=== PATIENT | female | born 1990 | race Caucasian/White ===

== ENCOUNTER 2020-01-04 09:49 | Emergency (ER) | payer SELFPAY ==
[2020-01-04 09:54] VITALS: BP 92/49; PULSE 73; RESP 18; TEMP 37.1; O2SAT 100
[2020-01-04 11:41] VITALS: BP 96/67; PULSE 89; RESP 17; TEMP 37.7; O2SAT 99
--- NOTE | 2020-01-04 11:42 | ED.ABDPAIN ---
HPI - Abdominal Pain General Chief Complaint: Unspecified Stated Complaint: sore throat/cough Time Seen by Provider: 01/04/20 09:50 Source: patient Mode of arrival: ambulatory Limitations: no limitations History of Present Illness HPI narrative: Patient is a 29-year-old female who presents with 1 week duration of upper respiratory infection with sore throat and productive cough of green phlegm denies fever chills nausea vomiting patient on arrival in the room in no distress not take anything for her symptoms notes mild aching pain to the throat made worse with swallowing Related Data Allergies Allergy/AdvReac Type Severity Reaction Status Date / Time No Known Allergies Allergy Verified 01/04/20 09:57 Review of Systems Review of Systems: Narrative: CONSTITUTIONAL: Denies fever, chills, or sweats. EYES: Denies redness, or discharge. ENT: Denies rhinorrhea, congestion, or otalgia. RESPIRATORY: Denies dyspnea. GASTROINTESTINAL: Denies abdominal pain, nausea, vomiting, or diarrhea. GENITOURINARY: Denies dysuria or hematuria. SKIN: Denies rash or itching. MUSCULOSKELETAL: Denies back pain, joint pain, or myalgia. NEUROLOGIC: Denies headache, or weakness. [facility] History Surgical History Hx of tubal ligation Social History Social History Smoking status: Never smoker Gender identity (if verbalized by the patient): Female Exam Narrative: Exam Narrative: GENERAL: Well-appearing, well-nourished, and in no acute distress. HEAD: Normocephalic, atraumatic. EYES: PERRLA and EOMI. ENT: Nares clear, no rhinorrhea or epistaxis. Mucous membranes moist. Oropharynx with erythema and without tonsillar hypertrophy exudate or other lesions. Bilateral TMs pearly ortiz nonbulging NECK: Supple. No adenopathy or masses. CHEST: Clear to auscultation. No respiratory distress. No wheezes rales or rhonchi HEART: Regular rate and rhythm. No murmur heard. EXTREMITIES: Normal range of motion. No edema. SKIN: Warm, dry, no rash. NEURO: No focal deficits. Alert and oriented x3. Cranial nerves II through XII grossly intact PSYCH: Normal mood and affect. Course Course Emergency Course: Patient in the room in no distress aware of case findings treatment plan and diagnosis Vital Signs Vital signs: Vital Signs Temperature 98.7 F 01/04/20 09:54 Pulse Rate 73 01/04/20 09:54 Respiratory Rate 18 01/04/20 09:54 Blood Pressure 92/49 L 01/04/20 09:54 Pulse Oximetry 100 01/04/20 09:54 Temperature 98.7 F 01/04/20 09:54 Pulse Rate 73 01/04/20 09:54 Respiratory Rate 18 01/04/20 09:54 Blood Pressure 92/49 L 01/04/20 09:54 Pulse Oximetry 100 01/04/20 09:54 MDM - Abdominal Pain MDM Narrative Medical decision making narrative: Patient in the room in no distress aware of case findings treatment plan and diagnosis. Patient will be treated for strep pharyngitis Lab Data Labs: Strep Screen Positive Group A Strep *(Reference Range: Negative)* Discharge Plan Discharge Clinical Impression: Acute streptococcal pharyngitis Patient Disposition: Home, Self-Care Condition: Stable Instructions: Antibiotic Form, Strep Throat (ED) Additional Instructions: Follow up with your primary care provider within 1-2 days to set up for reevaluation. Go to ER for shortness of breath, difficulty breathing, chest pain, fever/chills, weakness, nauseau/vomitting, unable to swallow or open the mouth etc. or any other concerns. Stay well-hydrated Take any prescribed medications as directed. Follow patient education sheets If you do not have a drug allergy to tylenol or motrin and can tolerate it then take tylenol or motrin as needed for discomfort/pain. Prescriptions: New amoxicillin 500 mg capsule 500 mg PO Q8H 10 Days Qty: 30 RF: 0 fexofenadine [[facility]]
[2020-01-04 12:06] VITALS: BP 99/59; PULSE 78; RESP 15; O2SAT 100
== END 2020-01-04 12:07 | disposition home or self-care (01) ==
PROVIDERS: Emergency Provider Emergency Medicine
DX: J02.0 Streptococcal pharyngitis (principal)
CPT/HCPCS: 87880; 99283